=== PATIENT | female | born 1985 | race Caucasian/White ===

== ENCOUNTER 2016-12-10 05:11 | Emergency (ER) | payer MEDICAID, OTHER, SELFPAY ==
[~2016-12-10] VITALS: Ht 160 cm; Wt 108.0 kg
[~2016-12-10 05:11] MED LIST: CIPR500T89 PO; FLAG500T PO; IBUPOTC PO; NICO14DI20 TD; VITMTA PO
[2016-12-10] MEDS ORDERED: BETA1CRE (05:49)
[2016-12-10] MEDS ORDERED: BENT10CA (05:49)
[2016-12-10] MEDS ORDERED: NORCO, ANEXSIA 5/325MG TABLET (HYDROcodone/ACETAMINOPHEN) PO ONE (07:15)
[2016-12-10] MEDS ORDERED: cefTRIAXone SOD 1 GM in D5W MINI-BAG PLUS 50 ML IV ONE (07:15)
[2016-12-10] MEDS ORDERED: CLINDAMYCIN 150 MG CAP PO ONE (07:15)
[2016-12-10] MEDS ORDERED: NORCOTAB PO (07:34)
[2016-12-10] MEDS ORDERED: AUGM875T27 PO (07:35)
[2016-12-10 07:57] VITALS: BP 140/70
--- NOTE | 2016-12-10 07:59 | REP ---
Clinical: Trauma. Cat bite. Technique: AP, lateral, bilateral oblique views of the left second digit. Findings: No acute fracture or dislocation. The osseous structures and joint spaces are normal. No subcutaneous emphysema or radiodense foreign body appreciated. Impression: Normal left second digit radiographs. Signed by Lowell Robins MD 12/10/2016 07:51 A
== END 2016-12-10 07:59 | disposition home or self-care (01) ==
LOC: M ED 07:13
DX: S61.258A Open bite of other finger without damage to nail, initial encounter (principal); W55.01XA Bitten by cat, initial encounter; Y92.019 Unspecified place in single-family (private) house as the place of occurrence of the external cause; Y93.89 Activity, other specified; Y99.9 Unspecified external cause status